=== PATIENT | female | born 1980 | race Caucasian/White ===

== ENCOUNTER 2025-07-05 19:15 | Emergency (ER) | payer OTHER, SELFPAY ==
[2025-07-05 19:17] VITALS: BP 151/92
[2025-07-05 19:40] LABS: Hematocrit 38.9 % (37.0-47.0); Hemoglobin 13.3 g/dL (12.0-16.0); Mean Corp Hgb Conc. 34.2 g/dL (33.0-37.0); Mean Corpuscular Volume 85.3 fL (81.0-99.0); Nucleated Red Blood Cells % 0 %; Platelet Count 372 10^3/uL (130-400); Red Cell Dist. Width 11.9 % (11.5-14.5)
[2025-07-05 20:00] LABS: HCG, Serum Qualitative Screen Negative
[2025-07-05 20:04] LABS: ALT (SGPT) 19 U/L (0-35); AST (SGOT) 20 U/L (14-36); Albumin 4.7 g/dl (3.5-5.0); Alkaline Phosphatase 92 U/L (38-126); Blood Urea Nitrogen 10 mg/dl (7-17); Calcium 9.6 mg/dl (8.4-10.2); Carbon Dioxide 27 mmol/L (22-30); Chloride 106 mmol/L (98-107); Glucose 109 mg/dl (70-99); Potassium 4.0 mmol/L (3.5-5.1); Sodium 140 mmol/L (135-145); Total Protein 7.5 g/dl (6.3-8.2); eGFR > 60.00
[2025-07-05 20:07] LABS: Urine Character Clear (Clear)
[2025-07-05 21:24] VITALS: BMI 26.8
--- NOTE | 2025-07-05 21:30 | EDRN ---
Couple weeks ago, when pt woke she had R back pain, urinated then pain went away. Pt came home from work this morning and noted R middle upper back pain and thought it was muscular. Pt woke around 1500 and took 600mg motrin which did not help.
Urination is not helping pain. No blood/burning with urination. Nausea, no vomiting. No fever/chills, intermittent cough. No abd pain. Pt adds pain goes into R hip. When resting, pain improves, worse when pt gets up to walk. Pain does not go
away completely. Pt felt fine at work last night.
[2025-07-05 21:33] VITALS: BP 108/70
--- NOTE | 2025-07-05 22:26 | ED.GENMED ---
History of Present Illness
General
Chief Complaint: Flank Pain
Source: patient
Exam Limitations: none
Time Seen by Provider: 07/05/25 21:28
Nursing documentation reviewed up to this point in time: agreed with
History of Present Illness
History of Present Illness:
45-year-old female with history of x 2, appendectomy, bilateral oophorectomy, umbilical hernia repair, hypothyroid presents for right flank pain. She states for the past 2 weeks in the mornings she has noted mild right flank discomfort.
This morning the pain became suddenly worse, she tried heating pad, ibuprofen 600 mg at 3 PM and neither helped the pain. She states pain is now 6/10. She has been mildly nauseous but denies nausea at this time. There is been no vomiting. She
does have a history of constipation but usually has a bowel movement daily. She did have a bowel movement today. She denies fever or chills.
Past History
Past History
ED Past Medical History: Hypothyroidism
ED Past Surgical History: Appendectomy, , Gynecological (Bilateral oophorectomy,) and Other ( umbilical hernia 2020)
Social History
Tobacco: Non-smoker
Alcohol: Occasional
Personal:
Living: with family
Employment: Employed
Review of Systems
Review of Systems
Allergies reviewed?: Yes
All Other Systems: ROS reviewed and negative except as documented in HPI and ROS
Phy Exam
Physical Exam
Physical Exam:
GENERAL: No acute distress. A&Ox3.
CONSTITUTIONAL: Afebrile.
EYES: clear, conjunctivae normal
ENMT: moist mucus membranes
RESPIRATORY: Regular respirations, nonlabored, lungs clear.
CARDIOVASCULAR: Regular rate and rhythm, no murmurs, no rubs.
GI: Soft, nontender, normal BS
MUSCULOSKELETAL: Full range of motion of spine. Unable to reproduce flank or back pain with palpation. Moves with ease. Well perfused.
SKIN: Warm, dry, pink
PSYCH: Normal mood and affect. Well kept, interactive and appropriate
NEUROLOGIC: Awake, alert and oriented. No focal neurological deficits
Course
Orders/Labs/Results
Orders:
Orders
07/05/25 19:20
Test Result ONCE
07/05/25 19:25
Urine Reflex Culture from UA [Urinalysis Reflex To Culture] Urgent
Date Specimen was Collected: 07/05/25
Time Specimen was Collected: 19:20
07/05/25 19:29
Complete Blood Count/With Diff Urgent
Comprehensive Metabolic Panel Urgent
HCG, Serum Qualitative Screen Urgent
07/05/25 22:07
CT Abd/pel Without Iv Or Oral Urgent
Comment:
Reason For Exam: R flank pain
07/05/25 22:08
Ketorolac [Toradol] 15 mg IV NOW STA
Abnormal Lab Results
07/05/25
19:29
Absolute Monos (auto) 0.8 H 10^3/uL
(0.1-0.6)
Monocytes % 10.0 H %
(1.7-9.3)
Glucose 109 H mg/dl
(70-99)
07/05/25 19:29
07/05/25 19:29
Vital Signs
Initial and Last Documented VS:
Initial Vital Signs
Temp Pulse Resp BP Pulse Ox
98.0 F 80 20 151/92 99
07/05/25 19:17 07/05/25 19:17 07/05/25 19:17 07/05/25 19:17 07/05/25 19:17
Last Documented Vital Signs
Temp Pulse Resp BP Pulse Ox
98.0 F 67 14 108/70 99
07/05/25 19:17 07/05/25 21:33 07/05/25 21:33 07/05/25 21:33 07/05/25 22:30
MDM/Problems Addressed
Differential Diagnosis Includes:
Musculoskeletal pain, kidney stone
MDM/Problems Addressed:
45-year-old female with history of x 2, appendectomy, bilateral oophorectomy, umbilical hernia repair, hypothyroid presents for right flank pain. She states for the past 2 weeks in the mornings she has noted mild right flank discomfort.
This morning the pain became suddenly worse, she tried heating pad, ibuprofen 600 mg at 3 PM and neither helped the pain. She states pain is now 6/10. She has been mildly nauseous but denies nausea at this time. There is been no vomiting. She
does have a history of constipation but usually has a bowel movement daily. She did have a bowel movement today. She denies fever or chills.
CBC normal CMP normal
UA negative
hCG negative
11:00 PM:
CT abdomen pelvis plain: Radiology report read:
IMPRESSION:
No renal or ureteral calculus. No bladder calculus. No obstructive uropathy.
Minor sigmoid diverticulosis. No evidence of acute diverticulitis. No bowel obstruction. Mild colonic fecal burden.
No acute inflammatory process within the abdomen or pelvis.
Results discussed with patient and copy of CT report given to her. All questions answered.
Stable for discharge.
*Pulse Oximetry
SaO2: 99
Oxygen Mode of Delivery: Room air
Patient hypoxic: not evaluated
*Critical Care Note
Total Time (30-74mins, 75-104mins- exclusive of procedures): Not Applicable
ED Attending Note
-
Portions of this chart may have been created with voice recognition software.� Occasional wrong word or��sound alike� substitutions may have occurred due to the inherent limitations of voice recognition software.
Discharge Plan
Departure
Patient Disposition: Home (Routine Discharge)
Date of Disposition: 07/05/25
Time of Disposition: 23:06
Patient with high blood pressure during this ER visit?: No
Condition: Good
Discharge Problem:
Acute right flank pain
Instructions: Low back pain in adults, Musculoskeletal Pain
Prescriptions:
No Action
multivitamin Tablet
1 tab PO DAILY
levothyroxine [Synthroid] 25 mcg Tablet
25 mcg PO DAILY
aspirin [Aspirin Child] 81 mg Tablet,Chewable
81 mg PO DAILY
fluticasone propionate [Flonase] 50 mcg/actuation Fishtail,Suspension
1 spray INTRANASAL DAILY
Prempro 0.3-1.5 mg Tablet
1 tab PO DAILY
Referrals:
Emilie Osorio MD [Family Provider, Internal Medicine] - As needed
Activity Restrictions/Additional Instructions:
As we discussed, nothing worrisome in your workup here today.
Your CT scan is normal.
This may be musculoskeletal pain. Continue ibuprofen 600 mg, with food, every 6 hours as needed for the pain. Heating pad may help.
Interventions
Interventions:
*Risk Screen - Suicide Last Done: 07/05/25 21:24
*General Assessment Last Done: 07/05/25 19:17
*Neglect/Abuse Screening Last Done: 07/05/25 21:24
*ED- Fall Risk Assessment Last Done: 07/05/25 21:24
*ED COVID-19 Vaccine History Last Done: 07/05/25 21:24
*ED Influenza Vaccine History Last Done: 07/05/25 21:24
*Nursing Disposition Last Done: 07/05/25 23:24
BS-Xlrzoh-Cttypdxqse Assessment Last Done: 07/05/25 21:37
ED-Female Genitourinary Assessment Last Done: 07/05/25 21:37
Discharge Date and Time
Discharge Date/Time: 07/05/25 23:24
Print Language: FAROESE
--- NOTE | 2025-07-05 22:27 | EDRN ---
Spoke with I Sandrine MICROFILMER who said to hold off on toradol IV until CT result back since pt does not have iv access at this time.
--- NOTE | 2025-07-05 23:24 | EDRN ---
Went to discharge pt and discovered I [employer] TECHNICIAN gave pt discharge instructions
== END 2025-07-05 23:24 | disposition home or self-care (01) ==
LOC: EMR 19:15
PROVIDERS: Student in an Organized Health Care Education/Training Program; EMERGENCY PHYSICIAN Emergency Medicine; FAMILY PHYSICIAN Internal Medicine
DX: R10.A1 Flank pain, right side (principal); E03.9 Hypothyroidism, unspecified; Z90.49 Acquired absence of other specified parts of digestive tract; Z90.722 Acquired absence of ovaries, bilateral; Z98.891 History of uterine scar from previous surgery
CPT/HCPCS: 99284; 96374; 74176; 80053; 81003; 84703; 85025